=== PATIENT | female | born 1970 | race Two or more races ===

== ENCOUNTER 2021-07-11 01:09 | Emergency (ER) | payer MEDICARE, OTHER ==
[~2021-07-11] VITALS: Ht 157.5 cm; Wt 112.3 kg
[2021-07-11 01:15] VITALS: BP 116/39
[2021-07-11] MEDS ORDERED: METF-1185 PO (01:21)
[2021-07-11] MEDS ORDERED: HYDR25TA2 PO (01:21)
[2021-07-11] MEDS ORDERED: BECL10.6 IH (01:21)
[2021-07-11] MEDS ORDERED: MONT-35 PO (01:21)
[2021-07-11] MEDS ORDERED: ATEN100T92 PO (01:21)
[2021-07-11] MEDS ORDERED: FERR-89 PO (01:21)
[2021-07-11] MEDS ORDERED: INSLAN SQ (01:21)
[2021-07-11] MEDS ORDERED: LISI-893 PO (01:21)
== END 2021-07-11 03:18 | disposition left against medical advice (07) ==
LOC: EMS 01:17
DX: M79.89 Other specified soft tissue disorders (principal); Z53.21 Procedure and treatment not carried out due to patient leaving prior to being seen by health care provider